=== PATIENT | female | born 1960 | race Caucasian/White ===

== ENCOUNTER → 2020-08-06 10:54 | Outpatient (CLI) | payer OTHER, SELFPAY ==
--- NOTE | ~2020-08-06 | MM_ITS ---
EXAMINATION: MM screening [facility] BI w ata HISTORY: Screening mammogram TECHNIQUE: Craniocaudal and mediolateral oblique 3-D tomosynthesis images were obtained and synthetic 2-D images were generated. CAD analysis was submitted and interpreted. COMPARISON: 04/18/2019, 04/06/2018, 03/09/2018, 11/23/2016, 10/14/2012 BREAST PARENCHYMAL COMPOSITION: There are scattered areas of fibroglandular density. FINDINGS: RIGHT BREAST: There is a possible mass in the middle third outer breast best appreciated 6.5 cm from the nipple on the mediolateral oblique view. LEFT BREAST: A mass is present in the middle/posterior third of the lower-outer breast, best apprecia eran on the craniocaudal view 9 cm from the nipple. IMPRESSION: 1. Bilateral breast findings as described above. 2. Additional mammographic views and possible breast ultrasound are recommended. BI-RADS Category 0: Incomplete: Needs additional imaging evaluation. Reviewed, dictated and finalized at location A. IMPRESSION: 1. Bilateral breast findings as described above. 2. Additional mammographic views and possible breast ultrasound are recommended . BI-RADS Category 0: Incomplete: Needs additional imaging evaluation.
== END ==
PROVIDERS: Visit Provider Nurse Practitioner
DX: Z12.31 Encounter for screening mammogram for malignant neoplasm of breast (principal); R92.8 Other abnormal and inconclusive findings on diagnostic imaging of breast
CPT/HCPCS: 77063; 77067

== ENCOUNTER 2020-08-22 08:50 | Outpatient (CLI) | payer OTHER, SELFPAY ==
--- NOTE | ~2020-08-22 | MMUS_ITS ---
EXAMINATION: MM diagnostic mammo BI, US breast BI limited HISTORY: Follow-up bilateral breast masses TECHNIQUE: Additional 3-D tomosynthesis images of the breasts were performed and synthetic 2-D images were generated. CAD analysis was submitted and interpreted. High resolution bilateral limited breast ultrasound was performed. COMPARISON: 08/06/2020 BREAST PARENCHYMAL COMPOSITION: Breast composed of scattered areas of fibroglandular density. FINDINGS: MAMMOGRAPHIC FINDINGS: There are masses in the upper outer quadrant of the right breast and upper inner quadrant of the left breast which are persistent with spot compression and mediolateral views. ULTRASOUND: Right breast ultrasound: There are multiple cysts of the right breast, largest at 9:00, 7 cm from the nipple measuring 1 cm ma ximum dimension corresponding to the mammographic finding. Left breast ultrasound: At 10:00, 4 cm from the nipple, there is a 6 mm cyst corresponding to the mammographic abnormality. N o suspicious masses are identified in either breast to suggest malignancy. IMPRESSION: 1. No evidence for malignancy in either breast. Benign findings. 2. Routine yearly screening mammogram and regular clinical breast examination are recommended. BI-RADS Category 2: Benign finding(s). Reviewed, dictated and finalized at location A. IMPRESSION: 1. No evidence for malignancy in either breast. Benign findings. 2. Routine yearly screening mammogram and regular clinical breast examination a re recommended. BI-RADS Category 2: Benign finding(s).
== END 2020-08-22 08:51 ==
PROVIDERS: Visit Provider Obstetrics & Gynecology Gynecology
DX: R92.8 Other abnormal and inconclusive findings on diagnostic imaging of breast (principal)
CPT/HCPCS: 76642; 77066

== ENCOUNTER 2021-12-23 14:55 | Outpatient (CLI) | payer BC, SELFPAY ==
--- NOTE | ~2021-12-23 | MM_ITS ---
EXAMINATION: MM screening [facility] BI w ata HISTORY: Screening TECHNIQUE: Craniocaudal and mediolateral oblique 3-D tomosynthesis images were obtained and synthetic 2-D images were generated. CAD analysis was submitted and interpreted. COMPARISON: Comparison to multiple prior studies sequentially, with oldest reviewed study dated 11/23. BREAST PARENCHYMAL COMPOSITION: There are scattered areas of fibroglandular density. FINDINGS: There is no evidence of suspicious mass, calcification, or architectural distortion to sugg est malignancy in either breast. There has been no suspicious interval change. IMPRESSION: 1. No mammographic evidence of malignancy. 2. Recommend routine screening mammography in one year. BI-RADS Category 1: Negative Reviewed, dictated and finalized at location A. OM BOOKBINDER
== END 2021-12-23 14:56 | disposition home or self-care (01) ==
LOC: ANHIMG 14:59
PROVIDERS: Visit Provider Nurse Practitioner
DX: Z12.31 Encounter for screening mammogram for malignant neoplasm of breast (principal)
CPT/HCPCS: 77063; 77067

== ENCOUNTER 2022-03-16 15:24 | Outpatient (CLI) | payer BC, SELFPAY ==
--- NOTE | ~2022-03-16 | DEXA_ITS ---
Bone Density Report Name: TAMMY RIVERA (JANE) J Age: 62 Sex: Female Ethnicity: White Date of : 1960 Indication: postmenopausal; screening for osteoporosis; height loss; Referring Provider: ELLY, MARGO Study: Bone densitometry was performed. Exam Date: March 16, 2022 Accession number: [id number] Bone Density: Region BMD T-score Z-score Classification AP Spine(L1-L4) 1.086 0.4 1.8 Normal Femoral Neck (Left) 0.758 -0.8 0.5 Normal Total Hip (Left) 1.017 0.6 1.6 Normal Femoral Neck (Right) 0.724 -1.1 0.2 Osteopenia Total Hip (Right) 0.978 0.3 1.2 Normal Total Hip Mean 0.998 0.5 1.4 Normal World Health Organization criteria for BMD impression classify patients as: Normal (T-score at or above -1.0), Osteopenia (T-score between -1.0 and -2.5), or Osteoporosis (T-score at or below -2.5). 10-year Fracture Risk(1): Major Osteoporotic Fracture 6.9% Hip Fracture 0.4% Reported Risk Factors: [place] (), Neck BMD=0.724, BMI=31.6 (1) FRAX(R) Version 3.08. Fracture probability calculated for an untreated patient. Fracture probability may be lower if the patient has received treatment. Clinical Information Provided by Patient: Patient maximum height was 66 Menopause Age: 57 Onset of menses at age 14 Number of children 1 Impression: The patient has low bone mass, based on the Right Femoral Neck T-score. The patient has an estimated ten-year risk of hip fracture of 0.4% and an estimated ten-year risk of major fracture of 6.9%, based on the WHO FRAX algorithm. Discussion: BONE DENSITY IS LOW AT ONE OR MORE SKELETAL SITES. This patient's lowest T-score is low at one or more skeletal sites. It meets the World Health Organization's (WHO) criteria for ?low bone mass? (T-score between -1.0 and -2.5). The patient's 10-year risk of fracture as calculated by FRAX is less than the threshold where pharmacological therapy is recommended by the National Osteoporosis Foundation (NOF). However, all treatment decisions require clinical judgment and consideration of individual patient factors, including patient preferences, comorbidities, previous drug use, risk factors not captured in the FRAX model (e.g., frailty, falls, vitamin D deficiency, increased bone turnover, interval significant decline in bone density) and possible under or overestimation of fracture risk by FRAX. The patient should follow a healthful lifestyle (good nutrition with adequate calcium and vitamin D, and appropriate weight-bearing exercise). Follow-Up: Consider repeating this study in 2 to 3 years to reassess this patient's status, or sooner if there is some new clinical indication. Reported by: DARNELL on 03/16/2022 3:47:00 PM. Reviewed, dictated a
== END 2022-03-16 15:25 | disposition home or self-care (01) ==
PROVIDERS: Visit Provider Nurse Practitioner
DX: Z78.0 Asymptomatic menopausal state (principal); M85.851 Other specified disorders of bone density and structure, right thigh
CPT/HCPCS: 77080

== ENCOUNTER 2022-11-07 07:17 | Emergency (ER) | payer BC, SELFPAY ==
[2022-11-07 07:33] VITALS: BP 133/66; PULSE 92; RESP 18; TEMP 36.6; O2SAT 97
--- NOTE | 2022-11-07 11:26 | ED.URI ---
HPI - URI/Sore Throat General Chief Complaint: Upper Respiratory Infection <JOLLY Villarreal Last Filed: 11/07/22 14:19> Stated Complaint: cold and shakey <Janice Whiteside PA-C - Last Filed: 11/07/22 14:19> Time Seen by Provider: 11/07/22 11:16 <JOLLY Villarreal Last Filed: 11/07/22 14:19> History of Present Illness HPI Narrative: 62-year-old female here for evaluation of intermittent episodes of shakiness for the past 2 weeks. Patient states that the shakiness and feeling cold will come on at random. They are not associated with chest pain, diaphoresis, shortness of breath, syncope, lightheadedness or weakness, confusion or any other symptoms. She states that they will improve after she eats or drinks something. She is a diabetic but does not take any medications, managed with diet and exercise. She is not nauseated and has been tolerating p.o. Saw her primary care doctor who thought it may be related to anxiety, she was given hydroxyzine as needed but this is not helping. <JOLLY Villarreal Last Filed: 11/07/22 14:19> Related Data Allergies/Adverse Reactions: Allergies Allergy/AdvReac Type Severity Reaction Status Date / Time No Known Allergies Allergy Verified 11/07/22 11:16 <Janice Whiteside PA-C - Last Filed: 11/07/22 14:19> Review of Systems Review of Systems: Gen.: Reports shakiness. Denies fevers or chills Eyes: Denies eye pain or visual change ENT: Denies congestion Respiratory: Denies shortness of breath or cough CV: Denies chest pain or palpitations GI: Denies abdominal pain nausea, emesis or diarrhea denies burning, urgency, frequency or hematuria Musculoskeletal: Denies back pain or muscle pain Neuro: Denies numbness, tingling, weakness or focal weakness Skin: Denies rash Except as documented, all other systems reviewed and negative <JOLLY Villarreal Last Filed: 11/07/22 14:19> Exam Narrative: APPEARANCE: Well appearing, no pain in distress, well-nourished. Head: Normocephalic and atraumatic. EYES: PERRLA/EOMI, conjunctivae clear NOSE: No nasal drainage EARS: External ear normal in appearance THROAT: Oropharynx is clear. Mucous membranes are moist. NECK: Supple. No adenopathy, no masses. RESPIRATORY: Airway patent, respirations nonlabored. Clear to auscultation bilaterally, no rales, rhonchi, wheezing. CARDIOVASCULAR: Regular rate and rhythm without murmurs, rubs, or gallops. ABDOMINAL: Normoactive bowel sounds. Soft, nontender, nondistended. No rebound tenderness or guarding. MUSCULOSKELETAL: Extremities are warm and well-perfused. Moves all extremities well. No edema. NEURO: Normal speech. No focal neurologic deficits. SKIN: Skin is warm and dry. No rashes. PSYCHIATRIC: Normal affect/mood.. <Janice Whiteside PA-C - Last Filed: 11/07/22 14:19> Course HYDROGRAPHIC ENGINEER/PA Physician Supervision For this encounter, I have reviewed the mid-level provider documentation, treatment plan and medical decision making. I have had [id number] time with the patient. This is a 62-year-old female presenting to the ED with chief complaint of chills over the last 2 days. She has had decreased oral intake and typically her symptoms resolved after she eats and drinks. She has no other concerning findings. Her vital signs are stable. Viral swabs were negative. Patient be discharged home with instructions to maintain a normal diet and drink plenty of fluids. All questions answered. Patient in agreement w/ disposition. <Bernardo Escobar MD - Last Filed: 11/07/22 15:04> Vital Signs Vital signs: Vital Signs Temperature 97.8 F 11/07/22 07:33 Pulse Rate 92 11/07/22 07:33 Respiratory Rate 18 11/07/22 07:33 Blood Pressure 133/66 11/07/22 07:33 Pulse Oximetry 97 11/07/22 07:33 Oxygen Delivery Room Air 11/07/22 07:33 Temperature 97.8 F 11/07/22 07:33 Pulse Rate 92 11/07/22 07:33 Respirato
[2022-11-07 11:46] LABS: Basophils Percent Auto 0.6 % (0.2-1.2); Eosinophils Percent Auto 0.3 % (0-4.4); Hematocrit 41.3 % (37.0-47.0); Hemoglobin 13.5 g/dL (12.0-15.0); Immature Granulocyte Absolute 0.04 K/mm3 (0.00-0.031); Immature Granulocyte Percent A 0.6 % (0-0.5); Lymphocytes Absolute Auto 1.92 K/mm3 (0.9-3.2); Lymphocytes Percent Auto 27.8 % (18.3-44.2); Mean Corpuscular HGB Conc 32.7 g/dl (32-36); Mean Corpuscular Hemoglobin 30.4 pg (26-34); Monocytes Absolute Auto 0.5 K/mm3 (0.1-0.6); Monocytes Percent Auto 6.9 % (2.6-8.5); Neutrophils Absolute Auto 4.4 K/mm3 (1.3-6.7); Neutrophils Percent Auto 63.8 % (45.5-73.1); Platelet Count Result 239 k/mm3 (150-375); Red Blood Count 4.44 M/mm3 (4.2-5.4); Red Cell Distribution Width 12.8 % (11.5-14.5); White Blood Count 6.9 K/mm3 (4.5-10.0)
[2022-11-07 12:04] LABS: Alanine Aminotransferase 40 U/L (6-35); Albumin Level 4.6 g/dL (3.5-5.1); Alkaline Phosphatase 80 U/L (38-126); Anion Gap 8 mmol/L (8-16); Aspartate Amino Transferase 32 U/L (14-36); Bilirubin,Total 0.4 mg/dL (0.2-1.3); Blood Urea Nitrogen 10 mg/dL (7-17); Carbon Dioxide 28 mmol/L (22-30); Chloride 109 mmol/L (98-107); Estimated CRCL calculation 92 ml/min; Estimated Glomerular Filt Rate > 60; Glucose 102 mg/dL (65-110); Sodium 145 mmol/L (137-145)
== END 2022-11-07 12:15 | disposition home or self-care (01) ==
PROVIDERS: Physician Assistant; Emergency Provider Emergency Medicine
DX: R68.83 Chills (without fever) (principal)
CPT/HCPCS: 36415; 80053; 85025; 99283

== ENCOUNTER 2023-02-10 16:34 | Outpatient (CLI) | payer BC, SELFPAY ==
--- NOTE | ~2023-02-10 | MM_ITS ---
EXAMINATION: MM screening [facility] BI w ata HISTORY: Screening TECHNIQUE: Craniocaudal and mediolateral oblique 3-D tomosynthesis images were obtained and synthetic 2-D images were generated. CAD analysis was submitted and interpreted. COMPARISON: Comparison to multiple prior studies sequentially, with oldest reviewed study dated 12/2017. BREAST PARENCHYMAL COMPOSITION: Breast composed of scattered areas of fibroglandular density FINDINGS: The left breast is stable without evidence for malignancy. There is a focal asymmetry later ally in the right breast with possible architectural distortion. IMPRESSION: 1. Focal right breast asymmetry with possible architectural distortion laterally in the right breast on CC view. 2. Additional mammographic views and possible breast ultrasound are recommended. BI-RADS Category 0: Incomplete: Needs additional imaging evaluation. Reviewed, dictated and finalized at location A. IMPRESSION: 1. Focal right breast asymmetry with possible architectural distortion laterall y in the right breast on CC view. 2. Additional mammographic views and possible breast ultrasound are recommended . BI-RADS Category 0: Incomplete: Needs additional imaging evaluation.
== END 2023-02-10 16:35 | disposition home or self-care (01) ==
LOC: ANHIMG 16:36
PROVIDERS: Visit Provider Nurse Practitioner
DX: Z12.31 Encounter for screening mammogram for malignant neoplasm of breast (principal); R92.8 Other abnormal and inconclusive findings on diagnostic imaging of breast
CPT/HCPCS: 77063; 77067

== ENCOUNTER 2023-03-11 13:18 | Outpatient (CLI) | payer BC, SELFPAY ==
--- NOTE | ~2023-03-11 | MM_ITS ---
EXAMINATION: MM diagnostic [facility] w ata HISTORY: Right breast focal asymmetry on screening mammogram TECHNIQUE: Additional 3-D tomosynthesis images of the right breast were performed and synthetic 2-D i mages were generated. CAD analysis was submitted and interpreted. COMPARISON: 02/10/2023,12/23/2021, 08/22/2020, 08/06/2020 FINDINGS: There is a return to baseline fibroglandular appearance with spot compression of the right breast in the area questioned on screening mammogram. IMPRESSION: 1. No mammographic evidence of malignancy. 2. Recommend routine screening mammography in one year. BI-RADS Category 1: Negative Reviewed, dictated and finalized at location A.
== END 2023-03-11 13:19 | disposition home or self-care (01) ==
LOC: ANHIMG 13:19
PROVIDERS: Visit Provider Obstetrics & Gynecology Gynecology
DX: R92.8 Other abnormal and inconclusive findings on diagnostic imaging of breast (principal)
CPT/HCPCS: 77061; 77065; G0279

== ENCOUNTER 2023-12-17 14:30 | Outpatient (CLI) | payer BC, SELFPAY ==
--- NOTE | ~2023-12-17 | US_ITS ---
EXAMINATION: US pelvic complete w TV DATE: 12/17/2023 15:58 INDICATION: Postmenopausal bleeding. TECHNIQUE: Multiple transabdominal and transvaginal sonographic images of the pelvis were obtained. COMPARISON: None. FINDINGS: TRANSABDOMINAL ULTRASOUND: The uterus measures 6.5 x 2.6 x 3.6 cm. There is no free fluid in the pelvis. TRANSVAGINAL ULTRASOUND: The endometrial complex measures 3 mm in thickness. The ovaries are not visualized. IMPRESSION: 1. Normal uterus. 2. Ovaries not visualized. Reviewed, dictated and finalized at location E. MANAGER
== END 2023-12-17 14:31 | disposition home or self-care (01) ==
PROVIDERS: Visit Provider Nurse Practitioner
DX: N95.0 Postmenopausal bleeding (principal)
CPT/HCPCS: 76830; 76856

== ENCOUNTER 2024-05-17 14:40 | Outpatient (CLI) | payer BC, SELFPAY ==
--- NOTE | ~2024-05-17 | MM_ITS ---
EXAMINATION: MM screening [facility] BI w ata HISTORY: Screening TECHNIQUE: Craniocaudal and mediolateral oblique 3-D tomosynthesis images were obtained and synthetic 2-D images were generated. CAD analysis was submitted and interpreted. COMPARISON: Comparison to multiple prior studies sequentially, with oldest reviewed study dated 04/18. BREAST PARENCHYMAL COMPOSITION: Not dense: There are scattered areas of fibroglandular density. FINDINGS: There is no evidence of suspicious mass, calcification, or architectural distortion to sugg est malignancy in either breast. There has been no suspicious interval change. IMPRESSION: 1. No mammographic evidence of malignancy. 2. Recommend routine screening mammography in one year. BI-RADS Category 1: Negative Reviewed, dictated and finalized at location B.
== END 2024-05-17 14:41 | disposition home or self-care (01) ==
LOC: ANHIMG 14:43
PROVIDERS: Visit Provider Nurse Practitioner
DX: Z12.31 Encounter for screening mammogram for malignant neoplasm of breast (principal)
CPT/HCPCS: 77063; 77067

== ENCOUNTER 2025-09-18 10:16 | Outpatient (CLI) | payer BC, SELFPAY ==
--- NOTE | ~2025-09-18 | DEXA_ITS ---
Bone Density Report Name: TAMMY RIVERA Age: 65 Sex: Female Ethnicity: White Date of : 1960 Indication: postmenopausal; screening for osteoporosis; height loss; Referring Provider: RASHEED WALL Study: Bone densitometry was performed. Exam Date: September 18, 2025 Accession number: [id number] Bone Density: Region BMD T-score Z-score Classification AP Spine(L1-L4) 1.090 0.4 2.1 Normal Femoral Neck (Left) 0.745 -0.9 0.5 Normal Total Hip (Left) 1.012 0.6 1.7 Normal Femoral Neck (Right) 0.712 -1.2 0.2 Osteopenia Total Hip (Right) 0.981 0.3 1.5 Normal Total Hip Mean 0.997 0.5 1.6 Normal World Health Organization criteria for BMD impression classify patients as: Normal (T-score at or above -1.0), Osteopenia (T-score between -1.0 and -2.5), or Osteoporosis (T-score at or below -2.5). 10-year Fracture Risk(1): Major Osteoporotic Fracture 7.5% Hip Fracture 0.6% Reported Risk Factors: [place] (), Neck BMD=0.712, BMI=34.7 (1) FRAX(R) Version 3.08. Fracture probability calculated for an untreated patient. Fracture probability may be lower if the patient has received treatment. Previous Exams: Region Exam Age BMD T-score BMD Change BMD Change Date g/cm2 vs Baseline vs Previous AP Spine (L1-L4) 09/18/2025 65 1.090 0.4 0.004 (0.4%) 0.004 (0.4%) 03/16/2022 62 1.086 0.4 Total Hip(Left) 09/18/2025 65 1.012 0.6 -0.005 (-0.5%) -0.005 (-0.5%) 03/16/2022 62 1.017 0.6 Total Hip(Right) 09/18/2025 65 0.981 0.3 0.003 (0.3%) 0.003 (0.3%) 03/16/2022 62 0.978 0.3 *Denotes significance at 95% confidence level, LSC for AP Spine = 0.022 g/cm2, LSC for Total Hip = 0.027 g/cm2 Clinical Information Provided by Patient: Has used the following medications: Vitamin D Patient maximum height was 66 Menopause Age: 57 Onset of menses at age 14 Number of children 1 Impression: The patient has low bone mass, based on the Right Femoral Neck T-score. The patient has an estimated ten-year risk of hip fracture of 0.6% and an estimated ten-year risk of major fracture of 7.5%, based on the WHO FRAX algorithm. No significant bone loss was observed. Discussion: BONE DENSITY IS LOW AT ONE OR MORE SKELETAL SITES. This patient's lowest T-score is low at one or more skeletal sites. It meets the World Health Organization's (WHO) criteria for ?low bone mass? (T-score between -1.0 and -2.5). The patient's 10-year risk of fracture as calculated by FRAX is less than the threshold where pharmacological therapy is recommended by the National Osteoporosis Foundation (NOF). However, all treatment decisions require clinical judgment and consideration of individual patient factors, including patient preferences, comorbidities, previous drug use, risk factors not captured in the FRAX model (e.g., frailty, falls, vitamin D deficiency, increased bone turnover, interval significant decline in bone density) and possible under or overestimation of fracture risk by FRAX. The patient should follow a healthful lifestyle (good nutrition with adequate calcium and vitamin D, and appropriate weight-bearing exercise). Follow-Up: Consider repeating this study in 2 to 3 years to reassess this patient's status, or sooner if there is some new clinical indication. Reported by: DARNELL on 09/18/2025 11:17:00 AM. Reviewed, dictated and finalized at location A.
--- NOTE | ~2025-09-18 | MM_ITS ---
EXAMINATION: MM screening elmer BI w ata HISTORY: Screening TECHNIQUE: Craniocaudal and mediolateral oblique 3-D tomosynthesis images were obtained and synthetic 2-D images were generated. CAD analysis was submitted and interpreted. COMPARISON: Comparison to multiple prior studies sequentially, with oldest reviewed study dated 08/06/2020. BREAST PARENCHYMAL COMPOSITION: Not dense: There are scattered areas of fibroglandular density. FINDINGS: There is no evidence of suspicious mass, calcification, or architectural distortion to suggest malignancy in either breast. There has been no suspicious interval change. IMPRESSION: 1. No mammographic evidence of malignancy. 2. Recommend routine screening mammography in one year. BI-RADS Category 1: Negative Reviewed, dictated and finalized at location B. WARE DEVELOPER MANAGER
--- OUTSIDE RECORDS SUMMARY | 2025-09-18 10:49 | XMS_ITS | Clinical Summary ---
Author Organization [facility] Address [address] [address] Phone Care Team Providers Care Media Associate Name Role Phone Panda Barragan DO Primary Care Provider [phone] Allergies No known active allergies Medications FLUOXETINE HCL PO Take 10 mg by mouth daily. Active vitamin E 100 UNIT Capsule Take 100 Units by mouth daily. Active Cyanocobalamin (VITAMIN B-12 PO) Take 1,000 mg by mouth daily. Active busPIRone (BUSPAR) 5 MG Tablet Take 5 mg by mouth 2 times daily. Active Cholecalciferol (VITAMIN D3 PO) Take 5,000 Units by mouth in the morning and at bedtime. Active Active Problems No known active problems Family History Medical History Relation Name Comments Cancer Father lung Cancer Paternal Aunt breast Relation Name Status Comments Father Mother Paternal Aunt Social History Tobacco Use Types Packs/Day Years Used Date Smoking Tobacco: Never Smokeless Tobacco: Never Tobacco Cessation:Counseling Given: Not Answered Alcohol Use Standard Drinks/Week Comments Yes 0 (1 standard drink = 0.6 oz pur e alcohol) socially Comments Unknown Sex and Gender Information Value Date Recorded Sex Assigned at Not on file Legal Sex Female 9:54 PM CDT Gender Identity Not on file Sexual Orientation Not on file Last Filed Vital Signs Vital Sign Reading Time Taken Comments Blood Pressure 132/65 09/13/2023 8:03 AM HOOP ROLLS OPERATOR Pulse 72 09/13/2023 8:03 AM HOOP ROLLS OPERATOR Temperature 36 C (96.8 F) 09/13/2023 7:48 AM HOOP ROLLS OPERATOR Respiratory Rate 16 09/13/2023 8:03 AM HOOP ROLLS OPERATOR Oxygen Saturation 97% 09/13/2023 8:03 AM HOOP ROLLS OPERATOR Inhaled Oxygen Concentration - - Weight 93 kg (205 lb) 08/24/2023 11:00 AM CDT Height 167.6 cm (5' 6) 08/24/2023 11:00 AM CDT Body Mass Index 33.09 08/24/2023 11:00 AM CDT Plan of Treatment Health Maintenance Due Date Last Done Comments Hepatitis C Virus (HCV) Screening 1960 Mammogram 1960 TdaP Immunization 1960 Pap Smear 1983 Cervical Cancer Screening (CCS) 1992 HPV/Cotest 1992 Cologuard 2007 Immunochemical Fecal Occult Blood 2007 Pneumococcal Immunization (50+ years) (1 of 1 - PCV) 2012 Zoster Immunization (1 of 2) 2012 Influenza Immunization (#1) 2025 SARS-COV-2 Immunization (1 - season) 2025 Colonoscopy 09/13/2033 09/13/2023, 1104/2023, 07/01/2018, Additional history exists Colorectal Cancer Screening 09/13/2033 Respiratory Syncytial Virus (RSV) Immunization (Adult) (1 - 1-dose 75+ series) 2037 Hepatitis B Immunization Aged Out No longer eligible based on patient's age to complete this topic Human Papillomavirus (HPV) Immunization Aged Out No longer eligible based on patient's age to complete this topic Meningococcal Immunization (ACWY) Aged Out No longer eligible based on patient's age to complete this topic Rotavirus Immunization Aged Out No lo nger eligible based on patient's age to complete this topic Procedures Procedure Name Priority Date/Time Associated Diagnosis Comments GI IMAGING - COLONOSCOPY Routine 09/13/2023 6:28 AM HOOP ROLLS OPERATOR from Last 3 Months or Most Recently Relevant to Health Maintenance Results * GI IMAGING - COLONOSCOPY (09/13/2023 6:28 AM HOOP ROLLS OPERATOR) Jose Luis Ba MD IMG DIAGNOSTIC ORDERABLES Final Result from Last 3 Months or Most Recently Relevant to Health Maintenance Insurance [facility] Care Teams Media Associate Relationship Specialty Start Date End Date Panda Barragan DO [address] [address] PCP - General Family Medicine 08/04/23
--- OUTSIDE RECORDS SUMMARY | 2025-09-18 10:49 | XMS_ITS | Clinical Summary ---
Author Organization [facility] Address [address] [place] [address] Care Team Providers Care Director Of Agriculture Name Role Phone Panda Barragan DO Primary Care Provider [phone] Flower Parr APRN-OCCUPATIONAL HEALTH MANAGER Unavailab le Source Comments [facility],non-owned Affiliates and Associated Physician Practices is amultiple site organization consisting of ambulatory clinics and hospital sitesin [place], [place], [place] and [place]. This disclosure is being madepursuant to the Care Everywhere program and may not contain all information available regarding this patient. Last updated 18.[facility] Allergies No known active allergies Medications * Be aware that medications may not be up to date on this document. Alwaysverify current medications with the patient. FLUOXETINE HCL PO Take 40 mg by mouth once daily Active vitamin E (Tocopheryl) 100 UNIT capsule Take 1 (one) capsule by mouth once daily Active busPIRone (Buspar) 7.5 MG tablet Take 1 (one) tablet by mouth 2 times daily 04/27/2023 Active vitamin D3 (Cholecalcifero l) 25 MCG (1000 UNITS) tablet Take 1 (one) tablet by mouth once daily Active Active Problems Problem Noted Date Diagnosed Date Abnormal mammogram of left breast 04/27/2018 Stress Encounters Date Type Department Care Team Description 08/03/2025 Results Follow-Up [facility] - Family Medicine [address] [place] [address], [address] [place] [address] Panda Barragan DO 08/02/2025 3:30 PM CDT Office Visit [facility] [address], [address] [place] [phone] Flower Parr, QUINTIN-CHANDA Well adult exam (Primary Dx); Anxiety; Need for prophylactic vaccination and inoculation against influenza 07/23/2025 Telephone [facility] [address], [facility] [address] [place] [address] Panda Barragan DO Requesting Labs 07/19/2025 Telephone [facility] [address], [facility] [address] [place] [address] Panda Barragan DO Appointment from Last 3 Months Immunizations Immunization Administration Dates Next Due INFLUENZA VACCINE, RECOM-GALVAN, TRIV. (FLUBLOCK TRIVALENT RIV3) 09/12/2024 INFLUENZA VACCINE, TRIV. (FL UZONE; FLULAVAL; FLUARIX; AFLURIA TRIVALENT; 6MO+), 0.5 ML (IIV3) 08/02/2025 PNEUMOCOCCAL PCV20 CONJ VAC IM 09/12/2024 Family History Medical History Relation Name Comments Cancer - Lung Father None Known Mother Relation Name Status Comments Father Mother Social History Tobacco Use Types Packs/Day Years Used Date Smoking Tobacco: Never Smokeless Tobacco: Never Tobacco Cessation:Counseling Given: Not Answered Alcohol Use Standard Drinks/Week Comments Yes 0 (1 standard drink = 0.6 oz pur e alcohol) rare PHQ-2 Answer Date Recorded Patient Health Questionnaire-2 Score 0 08/02/2025 Comments No Sex and Gender Information Value Date Recorded Sex Assigned at Not on file Legal Sex Female 10:24 AM CDT Gender Identity Not on file Sexual Orientation Not on file Last Filed Vital Signs Vital Sign Reading Time Taken Comments Blood Pressure 124/70 08/02/2025 3:04 PM CDT Pulse 85 08/02/2025 3:04 PM CDT Temperature 37.2 C (98.9 F) 10/12/2022 1:48 PM AIR HOLE DRILLER Respiratory Rate 22 08/02/2025 3:04 PM CDT Oxygen Saturation 99% 08/02/2025 3:04 PM CDT Inhaled Oxygen Concentration - - Weight 99.8 kg (220 lb) 08/02/2025 3:04 PM CDT Height 165.1 cm (5' 5) 08/02/2025 3:04 PM CDT Body Mass Index 36.61 08/02/2025 3:04 PM CDT Plan of Treatment Health Maintenance Due Date Last Done Comments COLOGUARD (AGES 45-75) - COLON CA SCREENING [address] COLONOGRAPHY - COLON CA SCREENING 1960 FIT - COLON CA SCREENING 1960 FLEX SIG - COLON CA SCREENING 1962 HIV SCREENING 1977 HEPATITIS C SCREENING 03/03/1980 DTAP/TDAP/TD VACCINES (1 - Tdap) 1981 ZOSTER VACCINE (1 of 2) 2012 PAP SMEAR 10/08/2023 10/08/2020 (Done Outside Per Patient), 10/12/2017 MAMMOGRAM 04/08/2024 04/08/2022 (Done Outside Per Patient), 10/23/2020 (Done Outside Per Report) COVID-19 VACCINE ( - season) 2025 COLONOSCOPY - COLON CA SCREENING 11/09/2026 11/09/2016 (Done Outside Per Report) Colorectal Cancer Screening 11/09/2026 SCREENING FOR DIABETES 08/02/2028 , 08/02/2025, 10/23/2021, Additional history exists LIPID TESTING 08/02/2030 08/02/2025, 10/08, 02/28/2021 Respiratory Syncytial Virus (RSV) Vaccine Pt: or over 60 yrs (1 - 1-dose 75+ series) 2037 PNEUMOCOCCAL VACCINE 50+ Completed 09/12/2024 DEPRESSION SCREENING Completed 08/02/2025, 05/28/2023, 10/12/2022 INFLUENZA VACCINE Completed 08/02/2025, 09/12/2024 HEPATITIS B VACCINE Aged Out No longe r eligible based on patient's age to complete this topic HIB VACCINE Aged Out No longer eligi ble based on patient's age to complete this topic HPV VACCINE Aged Out No longer eligi ble based on patient's age to complete this topic MENINGOCOCCAL (Group B) VACCINE SHARED DECISION-MAKING Aged Out No longer eligible based on patient's age to complete this topic MENINGOCOCCAL GROUPS A/C/Y/W VACCINE Aged Out No longer eligible based on patient's age to complete this topic Procedures Procedure Name Priority Date/Time Associated Diagnosis Comments CBC W AUTO DIFFERENTIAL Routine 08/02/2025 2:47 PM CDT Well adult exam TSH Routine 08/02/2025 2:47 PM CDT Well adult exam HEMOGLOBIN A1C Routine 08/02/2025 2:47 PM CDT Well adult exam COMPREHENSIVE METABOLIC PANEL Routine 08/02/2025 2:47 PM CDT Well adult exam LIPID PROFILE Routine 08/02/2025 2:47 PM CDT Well adult exam from Last 3 Months Results * (ABNORMAL) HEMOGLOBIN A1C (HgbA1C) (08/02/2025 2:47 PM CDT) Hemoglobin A1c 6.8(H) <5.7 % of total Hgb [facility] Comment: For someone without known diabetes, a hemoglobin A1c value of 6.5% or greater indicates that they may have diabetes and this should be confirmed with a follow-up test. For someone with known diabetes, a value <7% indicates that their diabetes is well controlled and a value greater than or equal to 7% indicates suboptimal control. A1c targets should be individualized based on duration of diabetes, age, comorbid conditions, and other considerations. Currently, no consensus exists regarding use of hemoglobin A1c for diagnosis of diabetes for children. REPORT COMMENT: FASTING:NO Test Performed at: [facility] [address] KAREN CASTELLANOS MD Blood BLOOD SPECIMEN / Unknown 08/02/2025 2:47 PM CDT 08/02/2025 2:47 PM CDT Panda Barragan DO LAB - CHEMISTRY ORDERABLES Fin al Result [address] [address] * CBC WITH DIFFERENTIAL (08/02/2025 2:47 PM CDT) White Blood Cell Count 7.3 3.8 - 10.8 Thousand/u L [facility] RBC 4.36 3.80 - 5.10 Million/uL [facility] Hemoglobin 13.6 11.7 - 15.5 g/dL [facility] Hematocrit 42.0 35.0 - 45.0 % [facility] MCV 96.3 80.0 - 100.0 fL [facility] MCH 31.2 27.0 - 33.0 pg [facility] MCHC 32.4 32.0 - 36.0 g/dL [facility] Comment: For adults, a slight decrease in the calculated MCHC value (in the range of 30 to 32 g/dL) is most likely not clinically significant; however, it should be interpreted with caution in correlation with other red cell parameters and the patient's clinical condition. RDW 12.4 11.0 - 15.0 % [facility] Platelet Count 306 140 - 400 Thousand/u L [facility] MPV 11.6 7.5 - 12.5 fL [facility] Neutrophil Absolute 4176 1500 - 7800 cells/uL [facility] Absolute Bands [facility] Metamyelocytes Absolute [facility] Myelocytes Absolute [facility] Absolute Prolymphocytes [facility] Lymphocytes Absolute 2460 850 - 3900 cells/uL [facility] Absolute Monocytes 518 200 - 950 cells/uL [facility] Eosinophils Absolute 88 15 - 500 cells/uL [facility] Basophils Absolute 58 0 - 200 cells/uL [facility] Absolute Blasts [facility] nRBC Absolute [facility] Granulocytes % 57.2 % [facility] Band Neutrophil [facility] Metamyelocytes [facility] Myelocytes [facility] Promyelocytes [facility] Lymphocytes % 33.7 % [facility] Lymphocyte Reactive [facility] Monocytes % 7.1 % [facility] Eosinophils % 1.2 % [facility] Basophils % 0.8 % [facility] Comment: Test Performed at: [employer] [facility] [employer] [address] KAREN CASTELLANOS MD Blasts [facility] nRBC [facility] Comments [facility] Comment: Test Performed at: [facility] [id number] [employer] [facility] [address] KAREN CASTELLANOS MD Blood BLOOD SPECIMEN / Unknown 08/02/2025 2:47 PM CDT 08/02/2025 2:47 PM CDT us Panda Tomales DO LAB - HEMATOLOGY ORDERABLES Fi nal Result [facility] [address] [place] [id number] * COMPREHENSIVE METABOLIC PANEL (08/02/2025 2:47 PM CDT) Pathologist [facility] Glucose 114 65 - 139 mg/dL [facility] Comment: Non-fasting reference interval BUN 14 7 - 25 mg/dL [facility] Creatinine 0.75 0.50 - 1.05 mg/dL [facility] eGFR by Cystatin C 89 > OR = 60 mL/min/1. 73m2 [facility] BUN/Creatinine Ratio SEE NOTE: 6 - 22 (calc) [facility] Comment: Not Reported: BUN and Creatinine are within reference range. Sodium 139 135 - 146 mmol/L [facility] Potassium 4.2 3.5 - 5.3 mmol/L [facility] Chloride 102 98 - 110 mmol/L [facility] CO2 30 20 - 32 mmol/L [facility] Calcium 9.6 8.6 - 10.4 mg/dL [facility] Protein Total 7.3 6.1 - 8.1 g/dL [facility] Albumin 4.7 3.6 - 5.1 g/dL [facility] Globulin Total 2.6 1.9 - 3.7 g/dL (calc) [facility] Albumin/Globulin Ratio 1.8 1.0 - 2.5 (calc) [facility] Bilirubin Total 0.3 0.2 - 1.2 mg/dL [facility] Alkaline Phosphatase 68 37 - 153 U/L [facility] AST 20 10 - 35 U/L [facility] ALT 24 6 - 29 U/L [facility] Comment: Test Performed at: [employer] [facility] [id number] KAREN CASTELLANOS MD Blood BLOOD SPECIMEN / Unknown 08/02/2025 2:47 PM CDT 08/02/2025 2:47 PM CDT us Panda Tomales DO LAB - CHEMISTRY ORDERABLES Fin al Result [address] [address] [place] [address] * TSH (08/02/2025 2:47 PM CDT) Pathologist [facility] TSH 2.79 0.40 - 4.50 mIU/L [facility] Comment: Test Performed at: [facility] [id number] [facility] [place] [address] KAREN CASTELLANOS MD Blood BLOOD SPECIMEN / Unknown 08/02/2025 2:47 PM CDT 08/02/2025 2:47 PM CDT Panda Yung DO LAB - CHEMISTRY ORDERABLES Fin al Result Performing Organization Address [facility] de Phone Number [facility] [address] [place] [address] * (ABNORMAL) LIPID PROFILE (08/02/2025 2:47 PM CDT) Cholesterol 215(H) <200 mg/dL [facility] HDL Cholesterol 50 > OR = 50 mg/dL [facility] Triglycerides 126 <150 mg/dL [facility] LDL Calculated 140(H) mg/dL (calc) [facility] Comment: Reference range: <100 Desirable range <100 mg/dL for primary prevention; <70 mg/dL for patients with CHD or diabetic patients with > or = 2 CHD risk factors. LDL-C is now calculated using the Carlos calculation, which is a validated novel method providing better accuracy than the Friedewald equation in the estimation of LDL-C. Shai MARTINEZ et al. TONI. 2013;310(19): 5708-5005 (http://education.Ryzing.Easy Voyage/faq/AEJ186) CHOL/HDLC RATIO 4.3 <5.0 (calc) [facility] Non HDL Cholesterol 165(H) <130 mg/dL (calc) [facility] Comment: For patients with diabetes plus 1 major ASCVD risk factor, treating to a non-HDL-C goal of <100 mg/dL (LDL-C of <70 mg/dL) is considered a therapeutic option. Test Performed at: [facility] [address] [place] [address] KAREN CASTELLANOS MD Blood BLOOD SPECIMEN / Unknown 08/02/2025 2:47 PM CDT 08/02/2025 2:47 PM CDT Panda SouzaYung DO LAB - CHEMISTRY ORDERABLES Fin al Result Performing Organization Address [facility] de Phone Number [facility] [address] [place] [address] from Last 3 Months Insurance [employer] Care Teams Director Of Agriculture Relationship Specialty Start Date End Date Panda Barragan DO [address] [address] PCP - General Family Medicine 02/21/21 Flower Parr APRN-OCCUPATIONAL HEALTH MANAGER [address] [phone] Nurse Practitioner Nurse Practitioner Family 08/02/25
--- OUTSIDE RECORDS SUMMARY | 2025-09-18 10:49 | XMS_ITS | Encounter Summary ---
Author Organization [facility] Address [address] [place] [address] Care Team Providers Care Dry Cleaning Attendant Name Role Phone Panda Barragan DO Primary Care Provider [phone] Flower Parr APRN-SCREW MACHINE SET UP OPERATOR TOOL Unavailab le Encounter Details Date Type Department Care Team (Late st Contact Info) Description 08/03/2025 Results Follow-Up [facility] - Family Medicine [address] [phone] Panda Barragan DO [address] [phone] Social History Tobacco Use Types Packs/Day Years Used Date Smoking Tobacco: Never Smokeless Tobacco: Never Alcohol Use Standard Drinks/Week Comments Yes 0 (1 standard drink = 0.6 oz pur e alcohol) rare PHQ-2 Answer Date Recorded Patient Health Questionnaire-2 Score 0 08/02/2025 Comments No Sex and Gender Information Value Date Recorded Sex Assigned at Not on file Legal Sex Female 10:24 AM CDT Gender Identity Not on file Sexual Orientation Not on file documented as of this encounter Plan of Treatment Scheduled Orders Name Type Priority Associated Diagnoses Orde r Schedule MICROALB/CREAT RATIO URINE RANDOM PANEL Lab Routine Prediabetes Ordered: 08/03/2025 documented as of this encounter Visit Diagnoses Diagnosis Prediabetes- Primary Other abnormal glucose documented in this encounter Care Teams Dry Cleaning Attendant Relationship Specialty Start Date End Date Panda Barragan DO [address] [phone] PCP - General Family Medicine 02/21/21 Flower Parr APRN-SCREW MACHINE SET UP OPERATOR TOOL [address] [address] Nurse Practitioner Nurse Practitioner Family 08/02/25 documented as of this encounter
== END 2025-09-18 10:17 | disposition home or self-care (01) ==
PROVIDERS: Visit Provider Obstetrics & Gynecology Gynecology
DX: Z12.31 Encounter for screening mammogram for malignant neoplasm of breast (principal); Z13.820 Encounter for screening for osteoporosis; Z78.0 Asymptomatic menopausal state; M85.851 Other specified disorders of bone density and structure, right thigh
CPT/HCPCS: 77063; 77067; 77080